=== PATIENT | male | born 1975 | race Asian ===

== ENCOUNTER 2021-08-18 16:19 | Observation (INO) | payer OTHER ==
[~2021-08-18] VITALS: Ht 182.9 cm; Wt 170.2 kg
[2021-08-18 16:30] VITALS: BP 130/90; TEMP 98.8
[2021-08-18 16:44] LABS: PLATELET COUNT 254 K/uL (142-355)
[2021-08-18] MEDS ORDERED: METFORMIN ER1000 MG PO (16:44)
[2021-08-18 17:06] LABS: PARTIAL THROMBOPLASTIN TIME 20.3 SECONDS (24.5-33.6)
[2021-08-18 17:09] LABS: POTASSIUM 3.3 mmol/L (3.6-5.2)
[2021-08-18 19:47] VITALS: BP 146/108; TEMP 98.7
[2021-08-18 20:50] VITALS: BP 146/108; TEMP 98.7; Ht 182.9 cm; Wt 170.2 kg
--- NOTE | 2021-08-18 23:01 | NUR ---
08/18/211929: PT WAS IN ROOM AT CHANGE OF SHIFT. PT ALERT, ORIENTED X4. PT DENIES PAIN AT THIS TIME. NO REDNESS OR WARMTH TO LEFT LEG. ORIENTED TO THE ENVIRONMENT.
--- NOTE | 2021-08-18 23:04 | NUR ---
08/18/212017: BLOOD SUGAR CHECKED. HAD READING OF 517. LAB NOTIFIED FOR GLUCOSE CHECK. 08/18/212054: RESULTS OF LAB GLUCOSE 546. DR SANDERSON NOTIFIED OF RESULTS. ORDERS RECEIVED.
--- NOTE | 2021-08-18 23:08 | NUR ---
08/18/212114: 1 LITER OF NS BOLUS GOING. 10 UNITS REGULAR INSULIN GIVEN SQ. IN LEFT ARM. 08/18/212214: BLOOD SUGAR RECHECKED AT 466. NOTIFIED OF BLOOD SUGAR RESULTS ORDER RECEIVED TO GIVE PT A DOSE OF PT'S HOME MED METFORMIN 1,000 MG. 08/18/21 2300: METFORMIN 1,000 MG GIVEN PO.WILL RECHECK BLOOD SUGAR AT MIDNIGHT.
--- NOTE | 2021-08-18 23:54 | NUR ---
BLOOD SUGAR RECHECKED. BS IS NOW 370. WILL RECHECK WITH NEXT VITAL SIGNS.
[2021-08-19 00:20] VITALS: BP 129/85; TEMP 98.6
--- NOTE | 2021-08-19 03:22 | NUR ---
Patient is on a 2 Gm Na diet plan and has pain and swelling, DVT, Left lower leg pain, uncontrolled DM, DM II, morbid obesity, positive D-Dimer, Arthritis, HTN, and is receiving metformin HCl/Glucophage,Morphine, Nitroglycerin, and labs reveal glucose 546 and 714 both elevated and MCV 99.4, D-Dimer 972 and all elevated and the labs that are depressed are MCHC 32.1, APTT, Na 129, K 3.3, Cl 94, and BUN 5. Patient is 6'0: at 375 and BMI at 50.85 and is Class III Obesity and is the highest level of obesity and IBW for height at 72 inches/6" = 178+/-10% (160 to 196 lbs.) and kcal needs x 25 = 2000, x 30 = 2400, x 35 = 2800, x 40 = 3200 kcal/day, protein needs x .8 to 1.5 = 65 to 121 grams per dya and fluids for IBW x 25 to 40 = 2000 to 3200 cc/ml per day. Patient is 211% of IBW. RD available as needed. RD Recommendations: 1-Add NCS or 2000 or 2200 Calorie High Fiber 2-Monitor Labs 3-PT to work with the patient and try to set up an exercise program for weight loss 4-RD to visit with the patinet and educate with handouts and verbal feedback 5-OT to work with the patient 6-Need to educate on medications when to give, how much, etc,,, with verbal feedback 7-Make sure hydrated RD available as needed.
[2021-08-19 04:00] VITALS: BP 109/78; TEMP 98.3
--- NOTE | 2021-08-19 04:14 | NUR ---
08/19/21 0400: BLOOD SUGAR CONTINUES TO DECLINE. BLOOD SUGAR IS 290.
[2021-08-19 08:00] VITALS: BP 111/70; TEMP 98.4
--- NOTE | 2021-08-19 08:17 | NUR ---
ENTERED ROOM TO GIVE MEDS, PT IN SHOWER
--- NOTE | 2021-08-19 09:00 | NUR ---
PT INSTRUCTED TO USE BSC UNTIL DVT R/O. PT STATES THAT HE SLIPPED IN SHOWER ON A SMALL PIECE OF SOAP THIS PAST TUESDAY AND HIS LEG WAS CAUGHT UNDERNEATH HIM AND HAS BEEN HURTING EVER SINCE. IS PAINFUL WHEN HE STANDS PUTTING PRESSURE ON LEG CALF AREA, ALSO PAIN RADIATES TO FOOT AND THEN SUBSIDES HE CONTINES TO WALK.
[2021-08-19 12:00] VITALS: BP 114/81; TEMP 98.5
[2021-08-19] MEDS ORDERED: ASPIRIN/ENTERIC81 MG PO (16:18)
[2021-08-19] MEDS ORDERED: LEVEMIR FL100 UNIT/M SC (16:27)
--- NOTE | 2021-08-19 17:33 | NUR ---
RADHA/DIETIAN SPOKE WITH PT REGARDING DIABETIC TEACHING. PT ALSO TAUGHT HOW TO INJECT HIMSELF FOR INSULIN ADMIN AND TO PREP SITE BEFORE INJECTIONS.
--- NOTE | 2021-08-20 09:47 | NUR ---
Spoke with [facility] to set up appointment. Information was sent per their request, and they will set up appointment with patient.
== END 2021-08-19 17:40 | disposition home or self-care (01) ==
LOC: ED 16:19 → MED/SURG 17:45
PROVIDERS: Hospitalist; ADMIT Internal Medicine Endocrinology, Diabetes & Metabolism; ATTEND Internal Medicine Endocrinology, Diabetes & Metabolism
DX: M79.605 Pain in left leg (principal); E87.6 Hypokalemia; I10 Essential (primary) hypertension; E66.01 Morbid (severe) obesity due to excess calories; E11.65 Type 2 diabetes mellitus with hyperglycemia
CPT/HCPCS: 36415; 80048; 81002; 82947; 82948; 85027; 85379; 85610; 85730; 87635; 96360; 96365; 96366; 96372; 96375; 99220; 99284; G0378; J1650; J1815; U0003

== ENCOUNTER 2022-05-23 15:01 | Emergency (ER) | payer OTHER ==
[~2022-05-23] VITALS: Ht 182.9 cm; Wt 170.1 kg
[~2022-05-23 15:01] MED LIST: ASPIRIN/ENTERIC81 MG PO; LEVEMIR FL100 UNIT/M SC; METFORMIN ER1000 MG PO
[2022-05-23 15:38] LABS: PLATELET COUNT 248 K/uL (142-355)
[2022-05-23 15:42] VITALS: TEMP 98.6
[2022-05-23 15:50] LABS: POTASSIUM 3.3 mmol/L (3.6-5.2)
[2022-05-23 18:05] VITALS: BP 123/71
== END 2022-05-23 18:05 | disposition short-term general hospital (02) ==
LOC: ED 15:01
PROVIDERS: Hospitalist
DX: J36 Peritonsillar abscess (principal); E11.65 Type 2 diabetes mellitus with hyperglycemia; Z11.52 Encounter for screening for COVID-19
CPT/HCPCS: 80048; 81002; 85027; 85610; 85730; 87502; 87635; 87651; 96360; 96374; 96375; 99284; J0696; J1815; J1885; J2270; J2405; Q9963; U0003